=== PATIENT | male | born 1985 | race Caucasian/White ===

== ENCOUNTER 2018-09-22 08:06 | Inpatient (IN) | payer OTHER ==
[2018-09-22 08:56] VITALS: BMI 31.4
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
[2018-09-22] MEDS ORDERED: ACETAMINOPHEN 325 MG TABLET (FP) PO PRN (09:48)
[2018-09-22] MEDS ORDERED: MAGNESIUM CITRATE 300 ML BOTTLE PO PRN (09:48)
[2018-09-22] MEDS ORDERED: LOPERAMIDE HCL 2 MG CAPSULE PO PRN (09:48)
[2018-09-22] MEDS ORDERED: MENTHOL/PHENOL 1 EACH UD MM PRN (09:48)
[2018-09-22] MEDS ORDERED: MAGNESIUM HYDROX 2400MG/30ML ORAL SUSPENSION 30 ML CUP PO PRN (09:48)
[2018-09-22] MEDS ORDERED: IBUPROFEN 400 MG TABLET (FP) PO PRN (09:48)
[2018-09-22] MEDS ORDERED: MAG HYDROX/AL HYDROX/SIMETH 30 ML UNIT-DOSE CUP PO PRN (09:48)
[2018-09-22 12:06] LABS: HEMATOCRIT 39.8 % (35.4-49); HEMOGLOBIN 13.6 GM/dL (11.7-16.9); MCH 31.9 pg (25.7-33.7); MCHC 34.1 g/dl (32.0-35.9); MEAN CELL VOLUME 93.6 fl (80-96); MEAN PLT VOLUME 8.6 fl (7.5-11.1); PLATELET COUNT 270 K/MM3 (134-434); RBC 4.26 M/mm3 (4.00-5.60); RDW 14.6 % (11.9-15.9); WHITE BLOOD COUNT 5.9 K/mm3 (4.0-10.0)
[2018-09-22 12:18] LABS: ALBUMIN 3.6 g/dl (3.4-5.0); BILIRUBIN,TOTAL 0.3 mg/dL (0.2-1); CALCIUM 9.3 mg/dL (8.5-10.1); CREATININE 0.9 mg/dL (0.55-1.3); TOT PROT 7.8 g/dl (6.4-8.2)
[2018-09-22] MEDS: PRENATAL VITAMINS W/ FOLIC ACID TABLET (FP) PO SCH (14:51)
[2018-09-22] MEDS: NICOTINE POLACRILEX 2 MG GUM BC PRN ×2 (15:04→21:54)
--- NOTE | 2018-09-22 17:43 | PN ---
[facility] Progress Note Note: Psychiatric nurse practitioner note: Call received by RN requesting patient's evening medications. External records reviewed and noted a 15 day prescription of depakote 500mg DR BID + Mirtazapine 15mg HS on 09/09/18. [employer] Worker able to speak briefly with patient concerning medications. States he is compliant and is requesting to continue medications tonight. Will order depakote 500mg BID + Mirtazapine 15mg + Valproic acid level on 09/23/18. Verbal consent given. Psychiatric consultation to be completed by procedure writer tomorrow morning.
[2018-09-22 18:35] LABS: PH,URINE 6.5 (5.0-8.0); URINE APPEARANCE CLEAR; URINE BILIRUBIN NEGATIVE (NEGATIVE); URINE COLOR YELLOW; URINE GLUCOSE (UA) NEGATIVE (NEGATIVE); URINE KETONE NEGATIVE (NEGATIVE); URINE LEUK ESTERASE NEGATIVE (NEGATIVE); URINE NITRITE NEGATIVE (NEGATIVE); URINE PROTEIN NEGATIVE (NEGATIVE); URINE UROBILINOGEN 0.2 mg/dL (0.2-1.0)
[2018-09-22] MEDS: THIAMINE HCL 100 MG TABLET (FP) PO SCH (21:53)
[2018-09-22] MEDS: DIVALPROEX SODIUM 500 MG TABLET E.C. PO SCH (21:53)
[2018-09-22] MEDS: MIRTAZAPINE 15 MG TABLET (FP) PO SCH (21:53)
[2018-09-22] MEDS ORDERED: MELATONIN 5 MG TABLETS PO PRN (22:00)
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
[2018-09-23] MEDS: PRENATAL VITAMINS W/ FOLIC ACID TABLET (FP) PO SCH (10:42)
[2018-09-23] MEDS: DIVALPROEX SODIUM 500 MG TABLET E.C. PO SCH ×2 (10:42→21:53)
[2018-09-23] MEDS: NICOTINE POLACRILEX 2 MG GUM BC PRN ×3 (10:45→21:54)
[2018-09-23] MEDS: VENLAFAXINE HCL 150 MG E.R. CAPSULE PO SCH (12:57)
[2018-09-23] MEDS ORDERED: TUBERCULIN PPD 5 TU/0.1ML VIAL ID ONE (16:41)
[2018-09-23] MEDS: THIAMINE HCL 100 MG TABLET (FP) PO SCH (21:53)
[2018-09-23] MEDS: MIRTAZAPINE 15 MG TABLET (FP) PO SCH (21:53)
[2018-09-23] MEDS: NAPROXEN 500 MG TABLET (FP) PO SCH (21:53)
[2018-09-24] MEDS: NAPROXEN 500 MG TABLET (FP) PO SCH ×2 (10:19→21:38)
[2018-09-24] MEDS: DIVALPROEX SODIUM 500 MG TABLET E.C. PO SCH ×2 (10:19→21:38)
[2018-09-24] MEDS: VENLAFAXINE HCL 150 MG E.R. CAPSULE PO SCH (10:20)
[2018-09-24] MEDS: PRENATAL VITAMINS W/ FOLIC ACID TABLET (FP) PO SCH (10:20)
[2018-09-24] MEDS: NICOTINE POLACRILEX 2 MG GUM BC PRN ×3 (10:20→21:38)
[2018-09-24] MEDS: MIRTAZAPINE 15 MG TABLET (FP) PO SCH (21:38)
[2018-09-24] MEDS: THIAMINE HCL 100 MG TABLET (FP) PO SCH (21:39)
[2018-09-25] MEDS: VENLAFAXINE HCL 150 MG E.R. CAPSULE PO SCH (10:28)
[2018-09-25] MEDS: NICOTINE POLACRILEX 2 MG GUM BC PRN ×4 (10:28→21:37)
[2018-09-25] MEDS: DIVALPROEX SODIUM 500 MG TABLET E.C. PO SCH ×2 (10:28→21:37)
[2018-09-25] MEDS: PRENATAL VITAMINS W/ FOLIC ACID TABLET (FP) PO SCH (10:28)
[2018-09-25] MEDS: NAPROXEN 500 MG TABLET (FP) PO SCH ×2 (10:28→21:37)
[2018-09-25] MEDS: THIAMINE HCL 100 MG TABLET (FP) PO SCH (21:37)
[2018-09-25] MEDS: MIRTAZAPINE 15 MG TABLET (FP) PO SCH (21:37)
[2018-09-26] MEDS: PRENATAL VITAMINS W/ FOLIC ACID TABLET (FP) PO SCH (10:41)
[2018-09-26] MEDS: DIVALPROEX SODIUM 500 MG TABLET E.C. PO SCH ×2 (10:41→21:36)
[2018-09-26] MEDS: VENLAFAXINE HCL 150 MG E.R. CAPSULE PO SCH (10:41)
[2018-09-26] MEDS: NAPROXEN 500 MG TABLET (FP) PO SCH ×2 (10:41→21:36)
[2018-09-26] MEDS: NICOTINE POLACRILEX 2 MG GUM BC PRN ×2 (10:42→21:36)
[2018-09-26] MEDS: MIRTAZAPINE 15 MG TABLET (FP) PO SCH (21:36)
[2018-09-26] MEDS: THIAMINE HCL 100 MG TABLET (FP) PO SCH (21:36)
[2018-09-27] MEDS: PRENATAL VITAMINS W/ FOLIC ACID TABLET (FP) PO SCH (10:24)
[2018-09-27] MEDS: NAPROXEN 500 MG TABLET (FP) PO SCH ×2 (10:24→21:39)
[2018-09-27] MEDS: DIVALPROEX SODIUM 500 MG TABLET E.C. PO SCH ×2 (10:24→21:39)
[2018-09-27] MEDS: VENLAFAXINE HCL 150 MG E.R. CAPSULE PO SCH (10:24)
[2018-09-27] MEDS: NICOTINE POLACRILEX 2 MG GUM BC PRN ×2 (10:25→21:40)
[2018-09-27] MEDS: MIRTAZAPINE 15 MG TABLET (FP) PO SCH (21:39)
[2018-09-27] MEDS: THIAMINE HCL 100 MG TABLET (FP) PO SCH (21:39)
[2018-09-28] MEDS: NICOTINE POLACRILEX 2 MG GUM BC PRN ×3 (06:14→21:35)
[2018-09-28] MEDS: PRENATAL VITAMINS W/ FOLIC ACID TABLET (FP) PO SCH (09:58)
[2018-09-28] MEDS: DIVALPROEX SODIUM 500 MG TABLET E.C. PO SCH ×2 (09:58→21:34)
[2018-09-28] MEDS: VENLAFAXINE HCL 150 MG E.R. CAPSULE PO SCH (09:58)
[2018-09-28] MEDS: NAPROXEN 500 MG TABLET (FP) PO SCH ×2 (09:58→21:34)
[2018-09-28] MEDS: MIRTAZAPINE 15 MG TABLET (FP) PO SCH (21:34)
[2018-09-28] MEDS: THIAMINE HCL 100 MG TABLET (FP) PO SCH (21:35)
[2018-09-29] MEDS: NICOTINE POLACRILEX 2 MG GUM BC PRN ×4 (06:12→21:46)
[2018-09-29] MEDS: PRENATAL VITAMINS W/ FOLIC ACID TABLET (FP) PO SCH (10:04)
[2018-09-29] MEDS: DIVALPROEX SODIUM 500 MG TABLET E.C. PO SCH ×2 (10:04→21:46)
[2018-09-29] MEDS: VENLAFAXINE HCL 150 MG E.R. CAPSULE PO SCH (10:05)
[2018-09-29] MEDS: NAPROXEN 500 MG TABLET (FP) PO SCH ×2 (10:05→21:46)
[2018-09-29] MEDS: CYCLOBENZAPRINE HCL 10 MG TABLET (FP) PO SCH (21:46)
[2018-09-29] MEDS: MIRTAZAPINE 15 MG TABLET (FP) PO SCH (21:46)
[2018-09-29] MEDS: THIAMINE HCL 100 MG TABLET (FP) PO SCH (21:46)
[2018-09-30] MEDS: PRENATAL VITAMINS W/ FOLIC ACID TABLET (FP) PO SCH (09:59)
[2018-09-30] MEDS: NAPROXEN 500 MG TABLET (FP) PO SCH ×2 (10:00→21:41)
[2018-09-30] MEDS: VENLAFAXINE HCL 150 MG E.R. CAPSULE PO SCH (10:00)
[2018-09-30] MEDS: NICOTINE POLACRILEX 2 MG GUM BC PRN ×2 (10:00→21:41)
[2018-09-30] MEDS: DIVALPROEX SODIUM 500 MG TABLET E.C. PO SCH ×2 (10:00→21:41)
[2018-09-30] MEDS: CYCLOBENZAPRINE HCL 10 MG TABLET (FP) PO SCH (21:41)
[2018-09-30] MEDS: MIRTAZAPINE 15 MG TABLET (FP) PO SCH (21:41)
[2018-09-30] MEDS: THIAMINE HCL 100 MG TABLET (FP) PO SCH (21:41)
[2018-10-01] MEDS: DIVALPROEX SODIUM 500 MG TABLET E.C. PO SCH ×2 (10:15→21:43)
[2018-10-01] MEDS: PRENATAL VITAMINS W/ FOLIC ACID TABLET (FP) PO SCH (10:15)
[2018-10-01] MEDS: VENLAFAXINE HCL 150 MG E.R. CAPSULE PO SCH (10:15)
[2018-10-01] MEDS: NAPROXEN 500 MG TABLET (FP) PO SCH ×2 (10:15→21:43)
[2018-10-01] MEDS: NICOTINE POLACRILEX 2 MG GUM BC PRN ×3 (10:16→21:44)
[2018-10-01] MEDS: CYCLOBENZAPRINE HCL 10 MG TABLET (FP) PO SCH (21:43)
[2018-10-01] MEDS: MIRTAZAPINE 15 MG TABLET (FP) PO SCH (21:43)
[2018-10-01] MEDS: THIAMINE HCL 100 MG TABLET (FP) PO SCH (21:43)
[2018-10-02] MEDS: VENLAFAXINE HCL 150 MG E.R. CAPSULE PO SCH (10:29)
[2018-10-02] MEDS: PRENATAL VITAMINS W/ FOLIC ACID TABLET (FP) PO SCH (10:30)
[2018-10-02] MEDS: NICOTINE POLACRILEX 2 MG GUM BC PRN ×3 (10:30→21:35)
[2018-10-02] MEDS: NAPROXEN 500 MG TABLET (FP) PO SCH ×2 (10:30→21:34)
[2018-10-02] MEDS: DIVALPROEX SODIUM 500 MG TABLET E.C. PO SCH ×2 (10:30→21:34)
[2018-10-02] MEDS: MIRTAZAPINE 15 MG TABLET (FP) PO SCH (21:34)
[2018-10-02] MEDS: CYCLOBENZAPRINE HCL 10 MG TABLET (FP) PO SCH (21:34)
[2018-10-02] MEDS: THIAMINE HCL 100 MG TABLET (FP) PO SCH (21:34)
[2018-10-03] MEDS: PRENATAL VITAMINS W/ FOLIC ACID TABLET (FP) PO SCH (10:39)
[2018-10-03] MEDS: VENLAFAXINE HCL 150 MG E.R. CAPSULE PO SCH (10:39)
[2018-10-03] MEDS: NAPROXEN 500 MG TABLET (FP) PO SCH ×2 (10:40→21:39)
[2018-10-03] MEDS: DIVALPROEX SODIUM 500 MG TABLET E.C. PO SCH ×2 (10:40→21:39)
[2018-10-03] MEDS: NICOTINE POLACRILEX 2 MG GUM BC PRN ×3 (10:40→21:40)
[2018-10-03] MEDS: CYCLOBENZAPRINE HCL 10 MG TABLET (FP) PO SCH (21:39)
[2018-10-03] MEDS: MIRTAZAPINE 15 MG TABLET (FP) PO SCH (21:39)
[2018-10-03] MEDS: THIAMINE HCL 100 MG TABLET (FP) PO SCH (21:39)
[2018-10-04] MEDS: NICOTINE POLACRILEX 2 MG GUM BC PRN ×4 (06:18→21:39)
[2018-10-04 06:56] VITALS: TEMP 97.8
[2018-10-04] MEDS: DIVALPROEX SODIUM 500 MG TABLET E.C. PO SCH ×2 (10:29→21:39)
[2018-10-04] MEDS: VENLAFAXINE HCL 150 MG E.R. CAPSULE PO SCH (10:29)
[2018-10-04] MEDS: PRENATAL VITAMINS W/ FOLIC ACID TABLET (FP) PO SCH (10:29)
[2018-10-04] MEDS: NAPROXEN 500 MG TABLET (FP) PO SCH ×2 (10:29→21:39)
--- NOTE | 2018-10-04 15:21 | PN ---
[facility] Progress Note (SOAP) Subjective: PT SCHEDULED FOR ROUTINE DISCHARGE TOMORROW 10/05/18. PT MET WITH COUNSELOR AND HAS BEEN REFERRED TO [facility] ON [address] [place] [address] , [place], [place]. PT REPORTS HE HAS A PCP WITH [facility] IN [place], [place] FOR MEDICAL MANAGEMENT. PT IS OOB AMBULATING WITH STEADY GAIT. ALERT O X 3. DENIES S/H/I. Objective: 10/04/18 15:21 Vital Signs (72 hours) 10/02/18 10/02/18 10/02/18 00:30 03:30 07:22 Temperature 97.5 F L Pulse Rate 66 Respiratory 18 16 16 Rate Blood Pressure 120/75 10/03/18 10/03/18 10/03/18 00:30 03:30 06:56 Temperature 97.5 F L Pulse Rate 58 L Respiratory 20 18 20 Rate Blood Pressure 128/73 10/04/18 10/04/18 10/04/18 00:30 03:30 06:55 Temperature 97.8 F Pulse Rate 62 Respiratory 18 18 20 Rate Blood Pressure 125/75 Laboratory Tests 09/22/18 09/22/18 09/22/18 10:00 10:00 10:00 WBC 5.9 RBC 4.26 Hgb 13.6 Hct 39.8 MCV 93.6 MCH 31.9 MCHC 34.1 RDW 14.6 Plt Count 270 MPV 8.6 Sodium 138 Potassium 4.0 Chloride 104 Carbon Dioxide 30 Anion Gap 4 L BUN 9.0 Creatinine 0.9 Est GFR (CKD-EPI)AfAm 131.44 Est GFR (CKD-EPI)NonAf 113.41 Random Glucose 84 Calcium 9.3 Total Bilirubin 0.3 AST 15 ALT 24 Alkaline Phosphatase 64 Total Protein 7.8 Albumin 3.6 Urine Color Urine Appearance Urine pH Ur Specific [place] Urine Protein Urine Glucose (UA) Urine Ketones Urine Blood Urine Nitrite Urine Bilirubin Urine Urobilinogen Ur Leukocyte Esterase Valproic Acid RPR Titer Nonreactive 09/22/18 09/23/18 14:00 07:00 WBC RBC Hgb Hct MCV MCH MCHC RDW Plt Count MPV Sodium Potassium Chloride Carbon Dioxide Anion Gap BUN Creatinine Est GFR (CKD-EPI)AfAm Est GFR (CKD-EPI)NonAf Random Glucose Calcium Total Bilirubin AST ALT Alkaline Phosphatase Total Protein Albumin Urine Color Yellow Urine Appearance Clear Urine pH 6.5 Ur Specific [place] 1.005 L Urine Protein Negative Urine Glucose (UA) Negative Urine Ketones Negative Urine Blood Negative Urine Nitrite Negative Urine Bilirubin Negative Urine Urobilinogen 0.2 Ur Leukocyte Esterase Negative Valproic Acid 36.8 L RPR Titer Assessment: 10/04/18 15:21 NAD MEDICALLY STABLE Home Medications Medication Instructions Recorded Cyclobenzaprine HCl [Flexeril 10 10 mg PO HS 09/22/18 mg] Divalproex *ER* [Depakote *ER* -] 500 mg PO BID 09/22/18 Divalproex Sodium [Depakote] 500 mg PO BID 09/22/18 Mirtazapine [Remeron -] 15 mg PO HS 09/22/18 Venlafaxine HCl ER [Effexor Xr -] 150 mg PO DAILY 09/22/18 Naproxen [Naprosyn] 500 mg PO BID 09/23/18 All Active Problems Alcohol dependence (chronic) Nicotine dependence(chronic) Hx Sciatica (Chronic) Plan: D/C PT ON 10/05/18. FOLLOW UP WITH CD AFTERCARE RECOMMENDATION. FOLLOW UP WITH MEDICAL MANAGEMENT WITHIN 1-2 WEEKS AFTER DISCHARGE.
[2018-10-04] MEDS: MIRTAZAPINE 15 MG TABLET (FP) PO SCH (21:39)
[2018-10-04] MEDS: CYCLOBENZAPRINE HCL 10 MG TABLET (FP) PO SCH (21:39)
[2018-10-04] MEDS: THIAMINE HCL 100 MG TABLET (FP) PO SCH (21:39)
[2018-10-05 06:40] VITALS: BP 126/74; PULSE 66
[2018-10-05] MEDS: PRENATAL VITAMINS W/ FOLIC ACID TABLET (FP) PO SCH (10:18)
[2018-10-05] MEDS: VENLAFAXINE HCL 150 MG E.R. CAPSULE PO SCH (10:18)
[2018-10-05] MEDS: NAPROXEN 500 MG TABLET (FP) PO SCH (10:18)
[2018-10-05] MEDS: DIVALPROEX SODIUM 500 MG TABLET E.C. PO SCH (10:18)
[2018-10-05] MEDS: NICOTINE POLACRILEX 2 MG GUM BC PRN (10:20)
== END 2018-10-05 10:55 | disposition home or self-care (01) | DRG 772 ==
LOC: YASAS 08:06 → Y5N 10:12
PROVIDERS: ADMIT Neuromusculoskeletal Medicine & OMM; ATTEND Neuromusculoskeletal Medicine & OMM
PROC: HZ42ZZZ Group Counseling for Substance Abuse Treatment, Cognitive-Behavioral (ICD-10-PCS; principal; 2018-09-22)
DX: F10.20 Alcohol dependence, uncomplicated (principal); F17.210 Nicotine dependence, cigarettes, uncomplicated; F10.280 Alcohol dependence with alcohol-induced anxiety disorder; F10.282 Alcohol dependence with alcohol-induced sleep disorder; F43.10 Post-traumatic stress disorder, unspecified; F41.0 Panic disorder [episodic paroxysmal anxiety]; M54.30 Sciatica, unspecified side; Z98.890 Other specified postprocedural states; Z91.5 Personal history of self-harm; Z59.0 Homelessness
CPT/HCPCS: 36415; 80053; 80164; 81003; 85027; 86593